=== PATIENT | female | born 1975 | race Caucasian/White ===

== ENCOUNTER 2017-02-18 13:07 | Emergency (ER) | payer BC ==
[2017-02-18 13:20] VITALS: BP 119/79
--- NOTE | 2017-02-18 14:33 | UC ---
Eye Complaint HPI - HPI Summary HPI Summary: 41 YEAR OLD FEMALE PRESENTS WITH COMPLAINS OF LEFT EYE REDNESS AND PAIN. PATIENT WILL GO TO DR OLIVARES ([employer]) - History of Current Complaint Chief Complaint: UCEye Stated Complaint: EYE PAIN AND IRRITATION Time Seen by Provider: 02/18/17 14:30 Hx Obtained From: Patient Hx Last Menstrual Period: 02/11/17 Onset/Duration: Sudden Onset Timing: Constant Severity Initially: Moderate Severity Currently: Moderate Pain Scale Used: 0-10 Numeric - 5 Location of Injury: Conjunctiva Character: Sharp Aggravating Factor(s): Nothing Alleviating Factor(s): Nothing - Allergies/Home Medications Allergies/Adverse Reactions: Allergies Allergy/AdvReac Type Severity Reaction Status Date / Time Minocycline Allergy See Comment Verified 02/18/17 13:18 Home Medications: Home Medications NK [No Home Medications Reported] 02/18/17 [History Confirmed 02/18/17] PMH/Surg Hx/FS Hx/Imm Hx Previously Healthy: Yes - Surgical History Surgical History: Yes Surgery Procedure, Year, and Place: granuloma labia 2010. nevus removal neck benign - Family History Known Family History: Positive: None - Social History Alcohol Use: Occasionally Substance Use Type: None Smoking Status (MU): Never Smoked Tobacco Review of Systems Constitutional: Negative Skin: Negative Eyes: Eye Redness ENT: Negative Respiratory: Negative Cardiovascular: Negative Gastrointestinal: Negative Genitourinary: Negative Motor: Negative Neurovascular: Negative Musculoskeletal: Negative Neurological: Negative Psychological: Negative All Other Systems Reviewed And Are Negative: Yes Physical Exam Triage Information Reviewed: Yes Vital Signs: Initial Vital Signs Temp 36.6 C 02/18/17 13:10 Pulse 92 02/18/17 13:10 Resp 18 02/18/17 13:10 BP 119/79 02/18/17 13:10 Pulse Ox 99 02/18/17 13:10 Eyes: Positive: Conjunctiva Inflamed ENT Exam: Normal Dental Exam: Normal Neck exam: Normal Neck: Positive: 1 Respiratory Exam: Normal Cardiovascular Exam: Normal Abdominal Exam: Normal Musculoskeletal Exam: Normal Neurological Exam: Normal Psychological Exam: Normal Skin Exam: Normal Eye Complaint Course/Dx - Differential Dx/Diagnosis Provider Diagnoses: LEFT SUBJUNCTIVAL HEMORRHAGE. LEFT EYE PAIN Discharge - Discharge Plan Condition: Stable Disposition: HOME Patient Education Materials: Subconjunctival Hemorrhage (ED), Eye Pain (ED) Referrals: Angelina Rodriguez RN [Primary Care Provider] - Additional Instructions: PATIENT SUGGESTED TO GO TO DR OLIVARES THE EYE DOCTOR
== END 2017-02-18 14:53 | disposition home or self-care (01) ==
LOC: UCEAST 13:07
DX: H11.32 Conjunctival hemorrhage, left eye (principal); Z88.3 Allergy status to other anti-infective agents; H57.12 Ocular pain, left eye
CPT/HCPCS: 99212; G0463

== ENCOUNTER 2017-02-28 14:16 | Emergency (ER) | payer BC ==
--- NOTE | 2017-02-28 14:59 | UC ---
UC General HPI - HPI Summary HPI Summary: Presents for rabies shots due to dog rolling in animal. Offers no other concerns or complaints at this visit. [facility] department felt this was a high risk exposure and ordered them to come in. - History of Current Complaint Stated Complaint: RABIES Time Seen by Provider: 02/28/17 14:47 Hx Obtained From: Patient Hx Last Menstrual Period: 06/02/13 - Allergy/Home Medications Allergies/Adverse Reactions: Allergies Allergy/AdvReac Type Severity Reaction Status Date / Time Minocycline Allergy See Comment Verified 02/28/17 15:13 Tetracyclines & Related Allergy See Comment Verified 02/28/17 15:13 PMH/Surg Hx/FS Hx/Imm Hx Previously Healthy: Yes - Surgical History Surgical History: Unable to Obtain/Confirm Surgery Procedure, Year, and Place: granuloma labia 2010. nevus removal neck benign - Family History Known Family History: Positive: Cardiac Disease, Other Family History: hypercholesertolemia - Social History Occupation: Works From/At Home Lives: With Family Alcohol Use: Occasionally Substance Use Type: None Smoking Status (MU): Never Smoked Tobacco Review of Systems All Other Systems Reviewed And Are Negative: Yes Physical Exam Triage Information Reviewed: Yes Appearance: Well-Appearing Vital Signs Reviewed: Yes ENT Exam: Normal Neck exam: Normal Respiratory Exam: Normal Cardiovascular Exam: Normal Abdominal Exam: Normal Musculoskeletal Exam: Normal Skin Exam: Normal Course/Dx - Course Course Of Treatment: Patient given rabies immunoglobulin, and vaccine to follow with schedule for vaccine unil completed. - Differential Dx - Multi-Symptom Differential Diagnoses: Other - rabies vaccine Provider Diagnoses: rabies vaccine Discharge - Discharge Plan Condition: Stable Disposition: HOME Patient Education Materials: Rabies Immune Globulin (By injection), Rabies Vaccine (ED) Referrals: Angelina Rodriguez RN [Primary Care Provider] -
[2017-02-28 15:15] VITALS: BP 142/81
[2017-02-28] MEDS ORDERED: Rabies Immune Globulin 10 ML* 150 UNIT/ML VIAL IM ONE (15:46)
[2017-02-28] MEDS ORDERED: Rabies Immune Globulin 2 ML* 150 UNITS/ML VIAL IM ONE (15:47)
[2017-02-28] MEDS ORDERED: Rabies Vaccine (RabAvert)* 2.5 UNITS VIAL IM ONE (15:48)
[2017-02-28] MEDS ORDERED: Rabies VIRUS VACCINE (Imovax)* 2.5 UNIT/ML 1 ML IM ONE (16:03)
== END 2017-02-28 17:49 | disposition home or self-care (01) ==
LOC: UCEAST 14:16
DX: Z20.3 Contact with and (suspected) exposure to rabies (principal)
CPT/HCPCS: 90375; 90471; 90675; 96372; 99211; G0463

== ENCOUNTER 2017-03-03 07:03 | Emergency (ER) | payer BC ==
[2017-03-03] MEDS ORDERED: Rabies VIRUS VACCINE (Imovax)* 2.5 UNIT/ML 1 ML IM ONE (07:13)
[2017-03-03 07:35] VITALS: BP 123/73
--- NOTE | 2017-03-03 07:59 | UC ---
Bite Injury/Animal HPI - HPI Summary HPI Summary: Here for day #[address] [facility] - History of Current Complaint Chief Complaint: UCGeneralIllness Stated Complaint: RABIES EXPOSURE Time Seen by Provider: 03/03/17 07:24 Hx Obtained From: Patient Hx Last Menstrual Period: 06/02/13 Pain Intensity: 0 Pain Scale Used: 0-10 Numeric Onset/Duration: Other - NA Aggravating Factor(s): Nothing Alleviating Factor(s): Nothing Associated Signs And Symptoms: Positive: Negative - Risk Factors Infection/Sepsis Risk Factors: Negative - Allergies/Home Medications Allergies/Adverse Reactions: Allergies Allergy/AdvReac Type Severity Reaction Status Date / Time Minocycline Allergy See Comment Verified 03/03/17 07:17 Tetracyclines & Related Allergy See Comment Verified 03/03/17 07:17 PMH/Surg Hx/FS Hx/Imm Hx Previously Healthy: Yes - Surgical History Surgical History: Yes Surgery Procedure, Year, and Place: granuloma labia 2010. nevus removal neck benign - Family History Known Family History: Positive: Cardiac Disease, Other Family History: hypercholesertolemia - Social History Alcohol Use: Occasionally Substance Use Type: None Smoking Status (MU): Never Smoked Tobacco Review of Systems Constitutional: Negative Skin: Negative Eyes: Negative ENT: Negative Respiratory: Negative Cardiovascular: Negative Gastrointestinal: Negative Genitourinary: Negative Motor: Negative Neurovascular: Negative Musculoskeletal: Negative Neurological: Negative Psychological: Negative Is Patient Immunocompromised?: No All Other Systems Reviewed And Are Negative: Yes Physical Exam Triage Information Reviewed: Yes Appearance: Well-Appearing, No Pain Distress, Well-Nourished Vital Signs: Initial Vital Signs Temp 98.4 F 03/03/17 07:17 Pulse 93 03/03/17 07:17 Resp 16 03/03/17 07:17 BP 123/73 03/03/17 07:17 Pulse Ox 100 03/03/17 07:17 Eyes: Positive: Conjunctiva Clear ENT: Positive: Hearing grossly normal. Negative: Nasal congestion, Nasal drainage, Trismus, Muffled/hoarse voice Neck: Positive: Supple, No Lymphadenopathy Respiratory: Positive: Lungs clear, Normal breath sounds, No respiratory distress, No accessory muscle use Cardiovascular: Positive: RRR, No Murmur Musculoskeletal: Positive: ROM Intact, No Edema Neurological: Positive: Alert Psychological Exam: Normal Skin Exam: Normal Bite Injury Course/Dx - Differential Dx/Diagnosis Provider Diagnoses: rabies prophylaxis Discharge - Discharge Plan Condition: Stable Disposition: HOME Patient Education Materials: Rabies Vaccine (By injection) Referrals: Nancy SILVERIOPAngelina [Primary Care Provider] - Additional Instructions: return as planned
== END 2017-03-03 08:15 | disposition home or self-care (01) ==
LOC: UCEAST 07:03
DX: Z20.3 Contact with and (suspected) exposure to rabies (principal); Z23 Encounter for immunization
CPT/HCPCS: 90471; 99211; G0463

== ENCOUNTER 2017-03-07 07:18 | Emergency (ER) | payer BC ==
[2017-03-07 07:48] VITALS: BP 117/72
[2017-03-07] MEDS ORDERED: Rabies VIRUS VACCINE (Imovax)* 2.5 UNIT/ML 1 ML IM ONE (08:07)
--- NOTE | 2017-03-07 09:48 | UC ---
Colten Solares Benjamin, scribed for Ayala Waldron DO on 03/07/17 at 0817 . General HPI - HPI Summary HPI Summary: 41yo female who comes into for rabies shots. Pt has been exposed to rabies via [place] Pt is asymptomatic. Pt had initial shot taken on Tuesday, 2nd shot on and is here for the 3rd shot. Will receive the fourth shot this . Hx of ITP. - History of Current Complaint Chief Complaint: UCGeneralIllness Stated Complaint: RABIES EXPOSURE Time Seen by Provider: 03/07/17 08:00 Hx Obtained From: Patient Hx Last Menstrual Period: 01/31/17 Onset/Duration: Gradual Onset, Lasting Weeks - 1 week, Still Present Current Severity: None Associated Signs & Symptoms: Negative: Cough, Fever, Headache - Allergy/Home Medications Allergies/Adverse Reactions: Allergies Allergy/AdvReac Type Severity Reaction Status Date / Time Minocycline Allergy See Comment Verified 03/07/17 07:41 Tetracyclines & Related Allergy See Comment Verified 03/07/17 07:41 PMH/Surg Hx/FS Hx/Imm Hx - Additional Past Medical History Additional PMH: itp Cardiovascular History: Bleeding Disorders - ITP - Surgical History Surgical History: Yes Surgery Procedure, Year, and Place: granuloma labia 2010. nevus removal neck benign - Family History Known Family History: Positive: Cardiac Disease, Other Family History: hypercholesertolemia - Social History Lives: With Family Alcohol Use: Occasionally Substance Use Type: None Smoking Status (MU): Never Smoked Tobacco Review of Systems Constitutional: Negative Skin: Negative Eyes: Negative ENT: Negative Respiratory: Negative Cardiovascular: Negative Gastrointestinal: Negative Genitourinary: Negative Motor: Negative Neurovascular: Negative Musculoskeletal: Negative Neurological: Negative Psychological: Negative All Other Systems Reviewed And Are Negative: Yes Physical Exam Triage Information Reviewed: Yes Appearance: Well-Appearing, No Pain Distress, Well-Nourished Vital Signs: Initial Vital Signs Temp 98.3 F 03/07/17 07:40 Pulse 79 03/07/17 07:40 Resp 18 03/07/17 07:40 BP 117/72 03/07/17 07:40 Pulse Ox 99 03/07/17 07:40 Vital Signs Reviewed: Yes Eyes: Positive: Conjunctiva Clear. Negative: Discharge ENT: Positive: Normal ENT inspection, Hearing grossly normal. Negative: Muffled /hoarse voice Neck: Positive: Supple, Nontender Respiratory: Positive: Lungs clear, Normal breath sounds, No respiratory distress, No accessory muscle use Cardiovascular: Positive: RRR, No Murmur Musculoskeletal Exam: Normal Neurological Exam: Normal Neurological: Positive: Alert, Muscle Tone Normal Psychological Exam: Normal Psychological: Positive: Age Appropriate Behavior Skin Exam: Normal Skin: Negative: rashes Course/Dx - Course Course Of Treatment: Reviewed pts list of medications and allergies. Blood pressure noted. - Differential Dx - Multi-Symptom Provider Diagnoses: rabies exposure Discharge - Discharge Plan Condition: Stable Disposition: HOME Patient Education Materials: Rabies (ED), Rabies Vaccine (ED) Referrals: Nancy MACE SAP BASISAngelina [Primary Care Provider] - If Needed The documentation as recorded by the Colten mckinney Benjamin accurately reflects the service I personally performed and the decisions made by , Ayala Waldron DO.
== END 2017-03-07 08:34 | disposition home or self-care (01) ==
LOC: UCEAST 07:18
DX: Z20.3 Contact with and (suspected) exposure to rabies (principal)
CPT/HCPCS: 90471; 99211; G0463

== ENCOUNTER 2017-03-14 07:16 | Emergency (ER) | payer BC ==
[2017-03-14] MEDS ORDERED: Rabies VIRUS VACCINE (Imovax)* 2.5 UNIT/ML 1 ML IM ONE (07:33)
[2017-03-14 07:37] VITALS: BP 111/84
--- NOTE | 2017-03-14 08:40 | UC ---
Arthur Solares Angela, scribed for Ayala Waldron DO on 03/14/17 at 0801 . General HPI - HPI Summary HPI Summary: This pt is a 13 y/o male presenting to [facility] for last rabies shot. Pt has had a possible exposure to rabies via their [place] who had possible exposure [place] the [place]. Per pt, dog came back from the [place] with blood over him and slobbered all over them. Pt had initial shot on Tuesday, 02/28, 2nd shot on (03/10 ), 3rd shot last Tuesday (03/07), 4th shot (03/10). Pt denies any sx. - History of Current Complaint Chief Complaint: UCBiteInjury Stated Complaint: RABIES EXPOSURE Time Seen by Provider: 03/14/17 07:32 Hx Obtained From: Patient, Family/Cartridge Gauger - mother Hx Last Menstrual Period: 03/11/17 Onset/Duration: Lasting Days Associated Signs & Symptoms: Negative: Abdominal Pain, Back Pain, Chest Pain, Diarrhea, Nausea, Vomiting - Allergy/Home Medications Allergies/Adverse Reactions: Allergies Allergy/AdvReac Type Severity Reaction Status Date / Time Minocycline Allergy See Comment Verified 03/14/17 07:37 Tetracyclines & Related Allergy See Comment Verified 03/14/17 07:37 PMH/Surg Hx/FS Hx/Imm Hx - Additional Past Medical History Additional PMH: PMHx: ITP Other Endocrine History: DENIES: diabetes Other Cardiovascular History: DENIES: HTN - Surgical History Surgical History: Yes Surgery Procedure, Year, and Place: granuloma labia 2010. nevus removal neck benign - Family History Known Family History: Positive: Cardiac Disease, Other Family History: hypercholesertolemia - Social History Alcohol Use: Occasionally Substance Use Type: None Smoking Status (MU): Never Smoked Tobacco - Immunization History Most Recent Influenza Vaccination: Not UTD Review of Systems Constitutional: Negative Skin: Negative Eyes: Negative ENT: Negative Respiratory: Negative Cardiovascular: Negative Gastrointestinal: Negative Genitourinary: Negative Motor: Negative Neurovascular: Negative Musculoskeletal: Negative Neurological: Negative All Other Systems Reviewed And Are Negative: Yes Physical Exam Triage Information Reviewed: Yes Appearance: Well-Appearing, No Pain Distress, Well-Nourished Vital Signs: Initial Vital Signs Temp 97.5 F 03/14/17 07:32 Pulse 67 03/14/17 07:32 Resp 16 03/14/17 07:32 BP 111/84 03/14/17 07:32 Pulse Ox 97 03/14/17 07:32 Vital Signs Reviewed: Yes Eyes: Positive: Conjunctiva Clear. Negative: Discharge ENT: Positive: Hearing grossly normal. Negative: Muffled/hoarse voice Neck exam: Normal Neck: Positive: Supple Respiratory: Positive: Lungs clear, Normal breath sounds, No respiratory distress, No accessory muscle use Cardiovascular: Positive: RRR, No Murmur Musculoskeletal Exam: Normal Neurological: Positive: Alert, Muscle Tone Normal Psychological Exam: Normal Psychological: Positive: Age Appropriate Behavior Skin Exam: Normal Skin: Positive: Other - warm, dry, normal color. Injection sites look good. Course/Dx - Course Course Of Treatment: Medications reviewed this visit. High blood pressure noted. - Differential Dx - Multi-Symptom Provider Diagnoses: possible rabies exposure, elevated bp w/o dx htn Discharge - Discharge Plan Condition: Stable Disposition: HOME Referrals: Nancy MACE STRUCTURAL DRAFTSMANAngelina [Primary Care Provider] - If Needed Additional Instructions: YOU HAVE ALREADY RECIEVED EDUCATIONAL MATERIAL ON THE RABIES VACCINE, SO, AT YOUR REQUEST, WE HAVE NOT INCLUDED IT AGAIN. Your blood pressure was elevated at this visit. That does not mean you have hypertension, it is probably due to your current condition. Please follow up with your primary care provider. The documentation as recorded by the Arthur mckinney Angela accurately reflects the service I personally performed and the decisions made by me, Ayala Waldron DO.
== END 2017-03-14 08:40 | disposition home or self-care (01) ==
LOC: UCEAST 07:16
DX: Z20.3 Contact with and (suspected) exposure to rabies (principal); Z23 Encounter for immunization; R03.0 Elevated blood-pressure reading, without diagnosis of hypertension
CPT/HCPCS: 90471; 99212; G0463

== ENCOUNTER 2017-11-22 21:39 | Emergency (ER) | payer BC ==
[2017-11-22] MEDS ORDERED: Ondansetron ODT TAB* 4 MG PO ONE (21:59)
[2017-11-22 22:10] LABS: ABS Basophils 0.1 10^3/ul (0-0.2); ABS Eosinophils 0.2 10^3/ul (0-0.6); ABS Lymphocytes 2.4 10^3/ul (1.0-4.8); ABS Monocytes 0.8 10^3/ul (0-0.8); ABS Neutrophils 6.3 10^3/ul (1.5-7.7); ABS Nucleated RBC 0 10^3/ul; Eosinophil % 2.2 % (0-6); Hematocrit 41 % (35-47); Hemoglobin 14.1 g/dl (12.0-16.0); Lymphocyte % 24.5 % (25-47); Mean Corpuscular HGB Conc 34 g/dl (31-36); Mean Corpuscular Hemoglobin 29 pg (27-31); Mean Corpuscular Volume 85 fL (80-97); Mean Platelet Volume 9.4 um3 (7.4-10.4); Nucleated Red Blood Cells % 0.1; Platelet Count 156 10^3/ul (150-450); Red Blood Count 4.83 10^6/ul (4.00-5.40); Red Cell Distribution Width 13 % (10.5-15); White Blood Count 9.8 10^3/ul (3.5-10.8)
--- NOTE | 2017-11-22 22:18 | ED ---
Head Injury - HPI Summary HPI Summary: 42-year-old female presents with pain under left eye and nose after head injury today. States she was kicked by a donkey. No loss consciousness. She admits to nausea but no vomiting. She admits to an intense headache. She admits to some blurry vision. She has been having difficulties concentrating. She admits to dizziness. She is not on blood thinners. She has history of ITP. Her nose bleed but is not actively bleeding. She denies any neck pain. Extraocular movements are intact. No other injury. She is not on blood thinners. - History Of Current Complaint Chief Complaint: EDHeadInjury Stated Complaint: HEAD INJURY Time Seen by Provider: 11/22/17 21:49 Hx Last Menstrual Period: 03/11/17 Pain Intensity: 8 - Allergies/Home Medications Allergies/Adverse Reactions: Allergies Allergy/AdvReac Type Severity Reaction Status Date / Time minocycline Allergy See Comment Verified 11/22/17 21:45 Tetracyclines Allergy See Comment Verified 11/22/17 21:45 PMH/Surg Hx/FS Hx/Imm Hx Endocrine/Hematology History: Reports: Other Endocrine/Hematological Disorders - itp Denies: Hx Diabetes, Hx Thyroid Disease, Hx Anemia Cardiovascular History: Denies: Hx Hypertension Respiratory History: Denies: Hx Asthma, Hx Chronic Obstructive Pulmonary Disease (COPD) GI History: Denies: Hx Jaundice, Hx Ulcer - Surgical History Surgery Procedure, Year, and Place: granuloma labia 2010. nevus removal neck benign Infectious Disease History: No Infectious Disease History: Denies: Hx Clostridium Difficile, Hx Hepatitis, Hx Human Immunodeficiency Virus (HIV), Hx of Known/Suspected MRSA, Hx Shingles, Hx Tuberculosis, Hx Known/ Suspected VRE, Hx Known/Suspected VRSA, History Other Infectious Disease, Traveled Outside the [place] in Last 30 Days - Family History Known Family History: Positive: Cardiac Disease, Other Family History: hypercholesertolemia - Social History Alcohol Use: Occasionally Substance Use Type: Reports: None Smoking Status (MU): Never Smoked Tobacco Review of Systems Negative: Fever Positive: Other - nares midline Negative: Chest Pain Negative: Shortness Of Breath Positive: Nausea. Negative: Vomiting Positive: Headache All Other Systems Reviewed And Are Negative: Yes Physical Exam Triage Information Reviewed: Yes Vital Signs On Initial Exam: Initial Vitals Temp Pulse Resp BP Pulse Ox 98.3 F 86 16 128/92 99 11/22/17 21:41 11/22/17 21:41 11/22/17 21:41 11/22/17 21:41 11/22/17 21:41 Vital Signs Reviewed: Yes Appearance: Positive: Well-Appearing Skin: Positive: Warm, Dry Head/Face: Positive: Normal Head/Face Inspection, Other - no step off, racoon eyes, harmon sign, tenderness left side of face under eyes Eyes: Positive: Normal, EOMI, MEET, Conjunctiva Clear ENT: Positive: Normal ENT inspection, Pharynx normal, TMs normal, Other - nares midline, no septal hematoma, blood in both nares Respiratory/Lung Sounds: Positive: Clear to Auscultation, Breath Sounds Present Cardiovascular: Positive: Normal, RRR Musculoskeletal: Positive: Normal Neurological: Positive: Sensory/Motor Intact, Alert, Oriented to Person Place, Time, CN Intact II-III, Finger to Nose Psychiatric: Positive: Normal - [place] Coma Scale Best Eye Response: 4 - Spontaneous Best Motor Response: 6 - Obeys Commands Best Verbal Response: 5 - Oriented Coma Scale Total: 15 Diagnostics - Vital Signs Vital Signs Temp Pulse Resp BP Pulse Ox 11/22/17 22:00 83 98 11/22/17 21:56 75 141/95 98 11/22/17 21:41 98.3 F 86 16 128/92 99 - Laboratory Lab Results: Lab Results 11/22/17 Range/Units 22:01 WBC 9.8 (3.5-10.8) 10^3/ul RBC 4.83 (4.00-5.40) 10^6/ul Hgb 14.1 (12.0-16.0) g/dl Hct 41 (35-47) % MCV 85 (80-97) fL MCH 29 (27-31) pg MCHC 34 (31-36) g/dl RDW 13 (10.5-15) % Plt Count 156 (150-450) 10^3/ul MPV 9.4 (7.4-10.4) um3 Neut % (Auto) 64.3 (38-83) % Lymph % (Auto) 24.5 L (25-47) % Oliver % (Auto) 8.3 H (0-7) % Eos % (Auto) 2.2 (0-6) % Baso % (Auto) 0.7 (0-2) % Absolute Neuts (auto) 6.3 (1.5-7.7) 10^3/ul Absolute Lymphs (auto) 2.4 (1.0-4.8) 10^3/ul Absolute Monos (auto) 0.8 (0-0.8) 10^3/ul Absolute Eos (auto) 0.2 (0-0.6) 10^3/ul Absolute Basos (auto) 0.1 (0-0.2) 10^3/ul Absolute Nucleated RBC 0 10^3/ul Nucleated RBC % 0.1 Result Diagrams: 11/22/17 22:01 Lab Statement: Any lab studies that have been ordered have been reviewed, and results considered in the medical decision making process. - CT brain CT Interpretation: No Acute Changes CT Interpretation Completed By: Radiologist maxillaryfacial CT Interpretation: No Acute Changes - soft tissue edema, no fx CT Interpretation Completed By: Radiologist Head Injury Course/Dx Course Of Treatment: 42-year-old female presents with pain under left eye and nose after head injury today. States she was kicked by a donkey. No loss consciousness. She admits to nausea but no vomiting. She admits to an intense headache. She admits to some blurry vision. She has been having difficulties concentrating. She admits to dizziness. She is not on blood thinners. She has history of ITP. Her nose bleed but is not actively bleeding. She denies any neck pain. Extraocular movements are intact. No other injury. She is not on blood thinners. On exam has a normal neuro exam. Has tenderness under left eyelid. Nares is midline. Got CT due to mechanism. CT brain normal. CT maxillofacial shows no fx only soft tissue contusion. will have place ice. will have follow up with primary. patient understand and agrees with plan. - Diagnoses Differential Diagnosis/HQI/PQRI: Concussion Without LOC, Contusion, Intracranial Bleed, Orbital Fracture Provider Diagnoses: Head injury, Contusion of face Discharge - Sign-Out/Discharge Documenting (check all that apply): Discharge/Admit/Transfer - Discharge Plan Condition: Good Disposition: HOME Patient Education Materials: Head Injury (ED), Facial Contusion (ED) Referrals: Laure Stephenson [Primary Care Provider] - Additional Instructions: Place ice on area as needed Take Tylenol or ibuprofen for headache every 6 hours Modify activities as tolerated Follow up with primary within 5 days Return to ED if develop any new or worsening symptoms - Billing Disposition and Condition Condition: GOOD Disposition: Home
[2017-11-22 23:36] VITALS: BP 124/77
--- NOTE | 2017-11-23 08:06 | RAD ---
Indication: Bleeding from bilateral nares following traumatic injury to the face. Nausea. Comparison: October 01, 2012 Technique: Noncontrast CT vertex of skull through foramen magnum. Report: The sulci, ventricles, and basal cisterns are normal for age. Blue matter white matter differentiation is preserved without evidence for edema. No intra or extra axial hemorrhage is detected. Mild symmetric basal ganglia calcification without change. Unremarkable visualized orbital contents. Negative for calvarial or skull base fracture. Negative for scalp hematoma. The visualized paranasal sinuses and mastoid air spaces are clear. IMPRESSION: No CT evidence for traumatic brain injury.
--- NOTE | 2017-11-23 08:10 | RAD ---
Indication: Facial injury. CT of the facial bones was obtained in the axial plane. Sagittal and coronal reconstructed images were obtained. The mandible demonstrates no evidence of fracture. Temporomandibular joints are grossly unremarkable. The visualized cervical spine demonstrates no evidence of fracture. The skull base is grossly unremarkable. Zygomatic arch is intact. Nasal bones are intact. Paranasal sinuses are otherwise unremarkable. The heart palate including the pterygoid plates are grossly unremarkable. The orbits and paranasal sinuses are unremarkable. IMPRESSION: No fracture of the facial bones is identified.
== END 2017-11-22 23:41 | disposition home or self-care (01) ==
LOC: ED 21:39
DX: S09.90XA Unspecified injury of head, initial encounter (principal); S00.83XA Contusion of other part of head, initial encounter; W55.32XA Struck by other hoof stock, initial encounter; Y93.9 Activity, unspecified; Y92.9 Unspecified place or not applicable; D69.3 Immune thrombocytopenic purpura; Z88.1 Allergy status to other antibiotic agents; Z82.49 Family history of ischemic heart disease and other diseases of the circulatory system; Z83.49 Family history of other endocrine, nutritional and metabolic diseases
CPT/HCPCS: 36415; 70450; 70486; 85025; 99282

== ENCOUNTER 2018-11-29 16:56 | Emergency (ER) | payer BC ==
[2018-11-29 17:14] VITALS: BP 129/86
--- NOTE | 2018-11-29 17:20 | UC ---
Ear Complaint HPI - HPI Summary HPI Summary: 43-year-old female comes in with a chief complaint of right ear pain. Been going for about a month. She's had upper respiratory tract infection symptoms. She's taken [id number] medicines which helped some with the symptoms but overall the symptoms are persisting. Patient is not a swimmer denies any dental pain. Denies any jaw pain. - History of Current Complaint Chief Complaint: UCEar Stated Complaint: RT EAR COMPLAINT Time Seen by Provider: 11/29/18 17:15 Hx Last Menstrual Period: 11/06/18 Pain Intensity: 5 - Allergies/Home Medications Allergies/Adverse Reactions: Allergies Allergy/AdvReac Type Severity Reaction Status Date / Time minocycline AdvReac See Comment Verified 12/28/17 15:06 Tetracyclines AdvReac See Comment Verified 12/28/17 15:06 PMH/Surg Hx/FS Hx/Imm Hx Previously Healthy: Yes Endocrine History: Dyslipidemia - Surgical History Surgical History: Yes Surgery Procedure, Year, and Place: granuloma labia 2010. nevus removal neck benign - Family History Known Family History: Positive: Cardiac Disease, Other Family History: hypercholesertolemia - Social History Alcohol Use: Rare Substance Use Type: None Smoking Status (MU): Never Smoked Tobacco - Immunization History Most Recent Influenza Vaccination: Not UTD Review of Systems All Other Systems Reviewed And Are Negative: Yes Constitutional: Positive: Negative Skin: Positive: Negative Eyes: Positive: Negative ENT: Positive: Sore Throat, Ear Ache, Nasal Discharge Respiratory: Positive: Negative Cardiovascular: Positive: Negative Gastrointestinal: Positive: Negative Motor: Positive: Negative Neurovascular: Positive: Negative Musculoskeletal: Positive: Negative Neurological: Positive: Negative Psychological: Positive: Negative Is Patient Immunocompromised?: No Physical Exam Triage Information Reviewed: Yes Appearance: Well-Appearing, No Pain Distress, Well-Nourished Vital Signs: Initial Vital Signs Temp 98.1 F 11/29/18 17:08 Pulse 90 11/29/18 17:08 Resp 20 11/29/18 17:08 BP 129/86 11/29/18 17:08 Pulse Ox 98 11/29/18 17:08 Vital Signs Reviewed: Yes Eye Exam: Normal Eyes: Positive: Conjunctiva Clear ENT: Positive: Pharyngeal erythema, Nasal congestion, TM bulging - RIGHT, Other - RT TRAGUS TENDER TO PALPATION Neck: Positive: Supple Respiratory: Positive: Lungs clear, Normal breath sounds, No respiratory distress Cardiovascular: Positive: RRR Musculoskeletal Exam: Normal Musculoskeletal: Positive: Strength Intact, ROM Intact Neurological Exam: Normal Neurological: Positive: Alert, Muscle Tone Normal Psychological Exam: Normal Psychological: Positive: Age Appropriate Behavior Skin Exam: Normal Ear Complaint Course/Dx - Differential Dx/Diagnosis Provider Diagnosis: Right serous otitis media, Right otitis externa Discharge - Sign-Out/Discharge Documenting (check all that apply): Patient Departure All imaging exams completed and their final reports reviewed: No Studies - Discharge Plan Condition: Stable Disposition: HOME Prescriptions: Amoxicillin PO (*) [Amoxicillin 875 MG (*)] 875 mg PO BID #20 tab Ofloxacin 0.3% (Ear Drop)* [Floxin 0.3% OTIC.SAMARA (Ear Drop)] 5 drop RIGHT EAR BID #1 btl Patient Education Materials: Otitis Externa (ED), Serous Otitis Media (ED) Referrals: Laure Stephenson [Primary Care Provider] - Additional Instructions: FOLLOW UP WITH YOUR DOCTOR IF NOT COMPLETELY IMPROVED. GET RECHECKED SOONER IF YOUR CONDITION WORSENS OR ANY QUESTIONS OR CONCERNS. - Billing Disposition and Condition Condition: STABLE Disposition: Home
== END 2018-11-29 17:29 | disposition home or self-care (01) ==
LOC: UCCORT 16:56
DX: H65.91 Unspecified nonsuppurative otitis media, right ear (principal); H60.91 Unspecified otitis externa, right ear
CPT/HCPCS: 99212; G0463